=== PATIENT | female | born 1965 | race Caucasian/White ===

== ENCOUNTER 2016-08-25 22:02 | Emergency (ER) | payer OTHER ==
[2016-08-25] MEDS ORDERED: TRIPLE ANTIBIOTIC OINTMENT PAC 1 PACKET TOP ONE (22:30)
[2016-08-25] MEDS ORDERED: ACETAMINOPHEN 500 MG TABLET PO ONE (22:31)
--- NOTE | 2016-08-25 22:35 | ED Physician Documentation ---
Fall - HISTORIAN Historian: patient - HPI Stated Complaint: fell out of WC Chief Complaint: Fall Additional Information: Says she hit a pothole and fell onto left side of her face out of WC. C/O pain left ear, teeth, #7 and 10, lower ant legs, left side of body. Says she got herself back into WC. Onset: today (am hpur ago) Associated Symptoms:: no loss of consciousness - ROS CONST: no problems - PAST HX Past History: other (venous stasis lower legs; morbid obesity) Allergies/Adverse Reactions: Allergies Allergy/AdvReac Type Severity Reaction Status Date / Time morphine Allergy Severe Anaphylaxis Verified 08/25/16 22:23 phenytoin sodium Allergy Intermediate Rash Verified 08/25/16 22:23 [From Dilantin] phenytoin sodium extended Allergy Intermediate Rash Verified 08/25/16 22:23 [From Dilantin] Penicillins Allergy Mild Rash Verified 08/25/16 22:23 gabapentin Allergy Verified 08/25/16 22:23 phenobarbital AdvReac Face Verified 08/25/16 22:23 Swelling pregabalin [From Lyrica] AdvReac Rash Verified 08/25/16 22:23 tramadol AdvReac Anaphylaxis Verified 08/25/16 22:23 ADHESIVES AdvReac Unknown Rash Uncoded 08/25/16 22:23 Home Medications: Ambulatory Orders Medication Instructions Recorded Furosemide [Lasix] 80 mg PO BID 09/15/13 Eszopiclone [Lunesta] 3 mg PO D 01/16/14 Albuterol Sulfate [Ventolin HFA 1 puff PO PRN PRN 08/30/14 Inhaler] Fluticasone/Salmeterol [Advair 1 puff PO PRN PRN 08/30/14 500-50 Diskus] Quetiapine Fumarate [Seroquel] 200 mg PO PM 08/30/14 Tolterodine Tartrate [Detrol LA] 4 mg PO DAILY 08/30/14 Alprazolam [Xanax] 1 mg PO QID 09/25/14 Ropinirole HCl [Requip] 1 mg PO BID 12/05/14 Ferrous Gluconate [Iron] 236 mg PO DAILY #30 tablet 12/16/14 Naproxen [Naprosyn] 500 mg PO Q12H 10 Days 09/24/15 Phenazopyridine HCl [Pyridium] 200 mg PO TID #6 tablet 11/23/15 Hydroxyzine HCl 50 mg PO DAILY #30 tablet 04/04/16 Phenazopyridine HCl [Pyridium] 200 mg PO Q8H #6 tablet 04/04/16 - SOCIAL HX Smoking History: cigarettes - FAMILY HX Family History: other (migraines) - VITAL SIGNS Vital Signs: Vital Signs Temp Pulse Resp BP Pulse Ox 128/68 05/06/16 06:23 - REVIEWED ASSESSMENTS Nursing Assessment Reviewed: Yes Vitals Reviewed: Yes Progress - Progress Progress: Explained she would not receive narcotics because she hit her head. Wants them after x-rays. Does not live alone. Pt's weight exceeds CT scan limits here. C-spine films inadequate. 2315, accepted for [id number] to [facility] ER per Dr. Gonzales. I explained to patient that she would have tp find a ride home. ED Results Lab/Radiology - Orders Orders: ED Orders Category Date Time Status Apply occlusive dressing D Care 08/25/16 22:[address] BRAIN W/O CONTRAST Stat Exams 08/25/[address] C-SPINE W/O CONTRAST Stat Exams 08/25/16 Ordered Acetaminophen [Tylenol Extra Strength] Med 08/25/16 22:31 Once 1,000 mg PO NOW ONE Triple Antibiotic Ointment Pac [Neosporin Packet] Med 08/25/16 22:30 Once 1 packet TOP 1T ONE Fall Physical Exam - Physical Exam General Appearance: alert, mild distress Head: non-tender, no swelling, no obvious injury Neck: painless ROM, trachea midline Eye: RICARDO (conjugate movements), lids & conjunct. nml ENT: nml external inspection (bilateral upper canines with what appear to be old caries. Longer central incisors intact.) Resp/CVS: chest non-tender, breath sounds nml Abdomen: soft, normal bowel sounds Neuro: CN's nml as tested, sensation nml, motor nml, reflexes nml (2+ throughout ) Skin: color nml (except lower legs with erythema, brawny skin changes), other ( vianney lower ant legs with aged 5-6 x 2-4 cm raw/healing areas. no drainage. ) Extremities: pelvis stable Joint: nml ROM Discharge Clincal Impression: Fall from wheelchair, Venous stasis dermatitis of both lower extremities Home Medications: Ambulatory Orders Furosemide [Lasix] 80 mg PO BID 09/15/13 Eszopiclone [Lunesta] 3 mg PO D 01/16/14 Albuterol Sulfate [Ventolin HFA Inhaler] 1 puff PO PRN PRN 08/30/14 Fluticasone/Salmeterol [Advair 500-50 Diskus] 1 puff PO PRN PRN 08/30/14 Quetiapine Fumarate [Seroquel] 200 mg PO PM 08/30/14 Tolterodine Tartrate [Detrol LA] 4 mg PO DAILY 08/30/14 Alprazolam [Xanax] 1 mg PO QID 09/25/14 Ropinirole HCl [Requip] 1 mg PO BID 12/05/14 Ferrous Gluconate [Iron] 236 mg PO DAILY #30 tablet 12/16/14 Naproxen [Naprosyn] 500 mg PO Q12H 10 Days 09/24/15 Phenazopyridine HCl [Pyridium] 200 mg PO TID #6 tablet 11/23/15 Hydroxyzine HCl 50 mg PO DAILY #30 tablet 04/04/16 Phenazopyridine HCl [Pyridium] 200 mg PO Q8H #6 tablet 04/04/16 Condition: Fair Disposition: 02 XFER [id number]-[id number] HOSP Decision to Admit: NO Decision Time: 23:15
[2016-08-26 00:17] VITALS: BP 92/67
--- NOTE | 2016-08-26 07:34 | Diagnostic Imaging Report ---
EDU KOTHARI [facility] [address] [facility] [address] [place] [address]. [id number] Report Submission Date: Aug 25, 2016 11:29:28 PM DINING MANAGER Patient Study Name: ADITHYA HOOD Date: Aug 25, 2016 10:57:39 PM DINING MANAGER Modality Type: CR Gender: F Description: SPINE : 67 Institution: [facility] Physician: EDU KOTHARI Cervical spine - two views Clinical history: Fell out of wheelchair. Findings: Examination of the cervical spine in AP and lateral views is extremely limited on the lateral view with the vertebrae visualized down to the midbody of C2. There is no obvious fracture on the AP image. The C1-2 articulation is not well demonstrated because of superimposed mandible. Impression: 1. Severely limited examination without definite fracture. 2. Fracture cannot be excluded based on these images. Electronically signed on Aug 25, 2016 11:29:28 PM DINING MANAGER by: Eris HAILE
== END 2016-08-26 | disposition short-term general hospital (02) ==
LOC: ED 22:02
DX: S09.90XA Unspecified injury of head, initial encounter (principal); W19.XXXA Unspecified fall, initial encounter; Y93.9 Activity, unspecified; Y99.9 Unspecified external cause status; I87.2 Venous insufficiency (chronic) (peripheral)
CPT/HCPCS: 72040; 99284

== ENCOUNTER 2016-10-15 01:25 | Observation (INO) | payer OTHER ==
[2016-10-15] MEDS ORDERED: FLUMAZENIL 0.1 MG/ML 5ML VIAL IV ONE ×2 (01:57→02:43)
[2016-10-15] MEDS ORDERED: NALOXONE HCL 2 MG/2 ML IVP ONE (01:58)
[2016-10-15] MEDS ORDERED: 0.9 % SODIUM CHLORIDE 1,000 ML IV SCH (02:00)
[2016-10-15 02:01] LABS: BASOPHILS % 0.4 (0.0-1.5); EOSINOPHILS % 1.6 % (0.0-6.8); MEAN CORPUSCULAR HEMOGLOBIN 29.4 pg (28.0-34.0); MEAN CORPUSCULAR VOLUME 95.5 fl (80.0-100.0); MONOCYTES % 3.9 % (0.0-11.0); NEUTROPHILS # 6.4 # k/uL (1.4-7.7)
[2016-10-15 02:10] LABS: eGFR (African) > 60; eGFR (Non-African) > 60
[2016-10-15] MEDS: BUDESONIDE 0.5MG/2ML AMPUL.NEB NEB SCH ×2 (03:38→09:55)
[2016-10-15] MEDS ORDERED: diphenhydrAMINE HCL 50 MG/ML VIAL IVP PRN (03:49)
[2016-10-15 04:04] VITALS: BMI 45.1
[2016-10-15] MEDS: 0.9 % SODIUM CHLORIDE 1,000 ML IV SCH ×2 (04:04→05:41)
[2016-10-15] MEDS ORDERED: LEVOTHYROXINE SODIUM 100 MCG TABLET PO ONE (04:16)
[2016-10-15 05:22] LABS: APPEARANCE,URINE CLOUDY (CLEAR); COLOR,URINE AMBER (YELLOW); OCCULT BLOOD,URINE TRACE-INTACT (NEGATIVE); PH URINE 5.5 (5.0 - 8.0); UROBILINOGEN URINE 0.2 Eu (0.2-1.0)
[2016-10-15 05:22] LABS: AMPHETAMINE NEGATIVE ng/mL (<1000); BARBITURATES NEGATIVE ng/mL (<300); CANNABINOIDS NEGATIVE ng/mL (<50); COCAINE NEGATIVE ng/mL (<150); METHAMPHETAMINE NEGATIVE ng/mL (<1000); METHYLENEDIOXYMETHAMPHETAMINE NEGATIVE ng/mL (<500)
[2016-10-15] MEDS: IPRATROPIUM/ALBUTEROL SULFATE 3 ML AMPUL.NEB NEB SCH ×3 (06:48→13:27)
[2016-10-15] MEDS ORDERED: LEVOTHYROXINE SODIUM 25 MCG TABLET PO SCH (07:00)
--- NOTE | 2016-10-15 07:29 | Diagnostic Imaging Report ---
LICHA CORADO [facility] [address] [facility] [address] [place], [place]. [address] Report Submission Date: Oct 15, 2016 2:23:00 AM CDT Patient Study Name: ADITHYA HOOD Date: Oct 15, 2016 2:02:32 AM CDT Modality Type: CR Gender: F Description: CHEST : 67 Institution: [facility] Physician: LICHA CORADO Portable chest History: Overdose Findings: Low lung volumes are observed with mild atelectasis or bronchovascular crowding at the lung bases. There is no confluent infiltrate or pleural effusion. Heart size and pulmonary vascularity are normal. Impression: Low lung volumes. Electronically signed on Oct 15, 2016 2:23:00 AM CDT by: Kirby HAILE
--- NOTE | 2016-10-15 08:21 | ED Physician Documentation ---
Overdose - HISTORIAN Historian: patient, paramedics - HPI Stated Complaint: Respiratory depression/decreased mental status/poss. OD on home meds Chief Complaint: Overdose Additional Information: Pt. states took 4 mg Dilaudid with all her other meds which, she states, is apparently too much. Found by paramedics to be unresponsive in obvious overdose. Given intranasal Narcan with good response. Onset: other (unknown, pt. states she took her normal meds before bed) Duration: sudden onset Intent: accidental Severity: severe Situational Problems: No Further Comments: no - Associated Symptoms Symptoms: other (accidentaql) Suicidal: denies: suicidal thoughts, specific plan, gesture, attempt Ingestion: denies: suicide attempt, wanted to "escape", accidental, will not answer Mechanism: overdose - ROS CONST: none NEURO/PSYCH: none EYES/ENT: none CVS/RESP: none GI/: denies: nausea, vomiting, abdominal pain, problems urinating MS/SKIN/LYMPH: denies: joint pain, leg swelling, rash, swollen glands, ankle swelling - PAST HX Psychiatric problems: bipolar disorder, depression Lung, Cardiac, DM: cardiac disease, diabetes Type 2, hypertension, other ( hypothyroidism) Surgical History: cholecystectomy Immunizations: referred to PCP Allergies/Adverse Reactions: Allergies Allergy/AdvReac Type Severity Reaction Status Date / Time morphine Allergy Severe Anaphylaxis Verified 08/25/16 22:23 phenytoin sodium Allergy Intermediate Rash Verified 08/25/16 22:23 [From Dilantin] phenytoin sodium extended Allergy Intermediate Rash Verified 08/25/16 22:23 [From Dilantin] Penicillins Allergy Mild Rash Verified 08/25/16 22:23 gabapentin Allergy Verified 08/25/16 22:23 phenobarbital AdvReac Face Verified 08/25/16 22:23 Swelling pregabalin [From Lyrica] AdvReac Rash Verified 08/25/16 22:23 tramadol AdvReac Anaphylaxis Verified 08/25/16 22:23 ADHESIVES AdvReac Unknown Rash Uncoded 08/25/16 22:23 Home Medications: Ambulatory Orders Medication Instructions Recorded Furosemide [Lasix] 80 mg PO BID 09/15/13 Eszopiclone [Lunesta] 3 mg PO D 01/16/14 Albuterol Sulfate [Ventolin HFA 1 puff PO PRN PRN 08/30/14 Inhaler] Fluticasone/Salmeterol [Advair 1 puff PO PRN PRN 08/30/14 500-50 Diskus] Quetiapine Fumarate [Seroquel] 200 mg PO PM 08/30/14 Tolterodine Tartrate [Detrol LA] 4 mg PO DAILY 08/30/14 Alprazolam [Xanax] 1 mg PO QID 09/25/14 Ropinirole HCl [Requip] 1 mg PO BID 12/05/14 Ferrous Gluconate [Iron] 236 mg PO DAILY #30 tablet 12/16/14 Naproxen [Naprosyn] 500 mg PO Q12H 10 Days 09/24/15 Phenazopyridine HCl [Pyridium] 200 mg PO TID #6 tablet 11/23/15 Hydroxyzine HCl 50 mg PO DAILY #30 tablet 04/04/16 Phenazopyridine HCl [Pyridium] 200 mg PO Q8H #6 tablet 04/04/16 - Social HX Smoking History: cigarettes Marital Status: other (n/a) Drug Use: none - Family HX Family HX: mental illness - VITAL SIGNS Vital Signs: Vital Signs Temp Pulse Resp BP Pulse Ox 98.8 F 92 H 20 132/74 94 10/15/16 06:00 10/15/16 06:00 10/15/16 06:00 10/15/16 06:00 10/15/16 07:49 - REVIEWED ASSESSMENTS Nursing Assessment Reviewed: Yes Vitals Reviewed: Yes Progress - Results/Orders Results/Orders: cbc, cmp, ua, uds, bnp, ekg, cxr ordered - Progress Progress: Pt. given Romazicon with complete resolution of altered mental status, now completely alert Critical Care Note - Critical Care Note Total Time (mins): 0 ED Results Lab/Radiology - Lab Results Lab Results: Lab Results 10/15/16 10/15/16 10/15/16 02:50 02:45 01:50 WBC RBC Hgb Hct MCV MCH MCHC RDW Plt Count Neut % (Auto) Lymph % (Auto) [place] % (Auto) Eos % (Auto) Baso % (Auto) Neut # Lymph # [place] # Eos # Baso # Reactive Lymphs % Reactive Lymphs # Sodium Potassium Chloride Carbon Dioxide BUN Creatinine Est GFR ( Amer) Est GFR (Non-Af Amer) Glucose Calcium Total Bilirubin AST ALT Alkaline Phosphatase NT-Pro-B Natriuret Pep 371.3 pg/mL H pg/mL (15.0-125.0) Total Protein Albumin Urine Color [place] (YELLOW) Urine Appearance Cloudy H (CLEAR) Urine pH 5.5 (5.0 - 8.0) Ur Specific [place] 1.025 (1.010-1.030) Urine Protein 2+ mg/dL H mg/dL (NEGATIVE) Urine Ketones Trace mg/dL H mg/dL (NEGATIVE) Urine Occult Blood Trace-intact H (NEGATIVE) Urine Nitrite Positive H (NEGATIVE) Urine Bilirubin Negative (NEGATIVE) Urine Urobilinogen 0.2 Eu Eu (0.2-1.0) Ur Leukocyte Esterase 1+ H (NEGATIVE) Urine Glucose Negative mg/dL mg/dL (NEGATIVE) Opiates Screen Negative (2000 ng/mL) Oxycodone Screen Negative ng/mL ng/mL (<100) Methadone Screen Negative ng/mL ng/mL (<300) POC Urine Barbiturates Negative ng/mL ng/mL (<300) Amphetamines Screen Negative ng/mL ng/mL (<1000) POC Ur Methamphetamine Negative ng/mL ng/mL (<1000) MDMA Negative ng/mL ng/mL (<500) Benzodiazepines Screen Non negative ng/mL H ng/mL (<300) Cocaine Screen Negative ng/mL ng/mL (<150) Marijuana (THC) Screen Negative ng/mL ng/mL (<50) 10/15/16 10/15/16 01:50 01:50 WBC 8.58 K/ul K/ul (4.00-12.00) RBC 5.29 M/ul H M/ul (3.90-5.20) Hgb 15.5 g/dL g/dL (12.0-16.0) Hct 50.5 % H % (34.5-46.5) MCV 95.5 fl fl (80.0-100.0) MCH 29.4 pg pg (28.0-34.0) MCHC 30.7 g/dL g/dL (30.0-36.0) RDW 15.0 % H % (11.3-14.3) Plt Count 280 K/mm3 K/mm3 (130-400) Neut % (Auto) 72.9 % % (39.0-79.0) Lymph % (Auto) 19.5 % % (16.0-50.0) [place] % (Auto) 3.9 % % (0.0-11.0) Eos % (Auto) 1.6 % % (0.0-6.8) Baso % (Auto) 0.4 (0.0-1.5) Neut # 6.4 # k/uL # k/uL (1.4-7.7) Lymph # 1.7 # k/uL # k/uL (0.6-4.0) [place] # 0.3 # k/uL # k/uL (0.0-0.9) Eos # 0.1 # k/uL # k/uL (0.0-0.6) Baso # 0.0 # k/uL # k/uL (0.0-0.5) Reactive Lymphs % 1.7 % % (0.0-5.0) Reactive Lymphs # 0.2 # k/uL # k/uL (0.0-0.8) Sodium 144 mmol/L mmol/L (136-145) Potassium 3.7 mmol/L mmol/L (3.5-5.0) Chloride 106 mmol/L mmol/L (98-110) Carbon Dioxide 37 mmol/L H mmol/L (20-32) BUN 12 mg/dL mg/dL (10-26) Creatinine 1.0 mg/dL mg/dL (0.4-1.5) Est GFR ( Amer) > 60 (60 - ) Est GFR (Non-Af Amer) > 60 (60 - ) Glucose 112 mg/dL H mg/dL (70-99) Calcium 10.2 mg/dL mg/dL (8.5-10.5) Total Bilirubin 0.2 mg/dL mg/dL (0.2-1.2) AST 44 U/L H U/L (0-41) ALT 47 U/L H U/L (0-45) Alkaline Phosphatase 85 U/L U/L (46-116) NT-Pro-B Natriuret Pep Total Protein 9.0 g/dL H g/dL (6.0-8.5) Albumin 4.7 g/dL g/dL (3.0-5.5) Urine Color Urine Appearance Urine pH Ur Specific [place] Urine Protein Urine Ketones Urine Occult Blood Urine Nitrite Urine Bilirubin Urine Urobilinogen Ur Leukocyte Esterase Urine Glucose Opiates Screen Oxycodone Screen Methadone Screen POC Urine Barbiturates Amphetamines Screen POC Ur Methamphetamine MDMA Benzodiazepines Screen Cocaine Screen Marijuana (THC) Screen - Radiology Radiology Impressions: cxr neg - Orders Orders: ED Orders Category Date Time Status Activity as ordered D Care 10/15/16 03:49 Active Assess pulse oximetry Q4H Care 10/15/16 03:49 Active Continuous EKG monitoring Q2 Care 10/15/16 03:49 Active Document Bowel Movement Q8H Care 10/15/16 03:49 Active ED Provider NOW Care 10/15/16 03:49 Ordered Monitor for changes in mental Q2H Care 10/15/16 03:49 Active No VTE Prophylaxis Needed .Once Care 10/15/16 03:49 Active Observation-Telemetry NOW Care 10/15/16 03:49 Ordered Obtain weight DAILY@0500 Care 10/15/16 03:49 Active Saline Lock [Remove IV/Saline Lock] 1T Care 10/15/16 01:52 Active Vital Signs Q4 Care 10/15/16 03:49 Active Regular Diet 10/15/16 Breakfast Ordered Regular Diet 10/15/16 Breakfast Ordered CHEST 1 VIEW [RAD] Routine Exams 10/15/16 Completed BNP [NT-proBNP] Routine Lab 10/15/16 01:50 Completed CBC AUTO DIFF Routine Lab 10/15/16 01:50 Completed CMP Routine Lab 10/15/16 01:50 Completed DRUG SCREEN URINE MEDICAL ONLY Routine Lab 10/15/16 02:50 Completed 0.9 % Sodium Chloride [Normal Saline] 1,000 ml Med 10/15/16 02:00 Ordered IV .Q1H 0.9 % Sodium Chloride [Normal Saline] 1,000 ml Med 10/15/16 03:49 Ordered IV Q10H Budesonide [Pulmicort] Med 10/15/16 03:00 Ordered 0.5 mg NEB BID Budesonide [Pulmicort] Med 10/15/16 09:00 Ordered 0.5 mg NEB BID Chem Sticks Med 10/15/16 07:30 Ordered 1 each CHEMQID Ferrous Sulfate [Feosol] Med 10/15/16 11:00 Ordered 325 mg PO 1100 Flumazenil [Romazicon] Med 10/15/16 02:43 Discontinued 0.5 mg IV NOW ONE Flumazenil [Romazicon] Med 10/15/16 01:57 Discontinued 1 mg IV NOW ONE Fluticasone Propionate [Flonase Nasal Guston] Med 10/15/16 09:00 Ordered 1 spray NS BID Furosemide [Lasix] Med 10/15/16 09:00 Ordered 40 mg IVP Q12 Ipratropium/Albuterol Sulfate [Duoneb] Med 10/15/16 05:00 Ordered 3 ml NEB Q4 Levofloxacin 250Mg/D5w 50Ml [Levaquin] 250 mg Med 10/15/16 09:00 Discontinued Premix Bag [Premix Fluid] 1 bag IV DAILY Levothyroxine Sodium [Synthroid] Med 10/15/16 07:00 Ordered 50 mcg PO 0700 Naloxone HCl [Narcan] Med 10/15/16 01:58 Discontinued 1 mg IVP NOW ONE Naproxen [Naprosyn] Med 10/15/16 09:00 Ordered 500 mg PO BID Phenazopyridine HCl [Pyridium] Med 10/15/16 09:00 Ordered 200 mg PO TID QUEtiapine FUMARATE [Seroquel] Med 10/15/16 09:00 Ordered 50 mg PO DAILY diphenhydrAMINE HCL [Benadryl] Med 10/15/16 03:49 Ordered 50 mg IVP Q6 PRN rOPINIRole HCL [Requip] Med 10/15/16 09:00 Ordered 1 mg PO BID Resuscitation Status Routine Oth 10/15/16 03:49 Ordered Oxygen Daily Oxygen 10/15/16 02:00 Ordered Oxygen Daily Oxygen 10/15/16 03:49 Ordered Transfer Routine Transfer 10/15/16 Completed Overdose Physical Exam - Physical Exam General Appearance: lethargic ENT: nml ENT inspection, pharynx nml, nml gag reflex, head atraumatic Eyes: PERRL, EOM's intact Mental Status: hostile. No: suicidal ideation Suicide Attempts: denies Orientation: nml x3 Cranial Nerves: CN's intact as tested Sensory, Motor: nml motor response, nml sensory response, nml reflexes Neck: normal inspection, thyroid normal, supple Respiratory: no resp distress, chest non-tender, breath sounds normal CVS: reg rate & rhythm, heart sounds normal, equal pulses, no murmur, no gallop , PMI nml, no JVD, no friction rub Abdomen: non-tender, no organomegaly, nml bowel sounds, no distention Skin: warm/dry, normal color Extremities: non-tender, normal range of motion, no evidence of injury, no edema Discharge Clincal Impression: Accidental overdose Qualifiers: Encounter type: initial encounter Qualified Code(s): T50.901A - Poisoning by unspecified drugs, medicaments and biological substances, accidental ( unintentional), initial encounter Home Medications: Ambulatory Orders Furosemide [Lasix] 80 mg PO BID 09/15/13 Eszopiclone [Lunesta] 3 mg PO D 01/16/14 Albuterol Sulfate [Ventolin HFA Inhaler] 1 puff PO PRN PRN 08/30/14 Fluticasone/Salmeterol [Advair 500-50 Diskus] 1 puff PO PRN PRN 08/30/14 Quetiapine Fumarate [Seroquel] 200 mg PO PM 08/30/14 Tolterodine Tartrate [Detrol LA] 4 mg PO DAILY 08/30/14 Alprazolam [Xanax] 1 mg PO QID 09/25/14 Ropinirole HCl [Requip] 1 mg PO BID 12/05/14 Ferrous Gluconate [Iron] 236 mg PO DAILY #30 tablet 12/16/14 Naproxen [Naprosyn] 500 mg PO Q12H 10 Days 09/24/15 Phenazopyridine HCl [Pyridium] 200 mg PO TID #6 tablet 11/23/15 Hydroxyzine HCl 50 mg PO DAILY #30 tablet 04/04/16 Phenazopyridine HCl [Pyridium] 200 mg PO Q8H #6 tablet 04/04/16 Comments: admitted to ER physician obs status, accidental overdose Condition: Stable Disposition: ADMITTED INPATIENT Decision to Admit: [id number] Decision Time: 04:15
[2016-10-15] MEDS ORDERED: FUROSEMIDE 40 MG TABLET PO ONE ×2 (08:58→09:19)
[2016-10-15] MEDS ORDERED: BUDESONIDE 0.5MG/2ML AMPUL.NEB NEB SCH (09:00)
[2016-10-15] MEDS ORDERED: rOPINIRole HCL 1 MG TABLET PO SCH (09:00)
[2016-10-15] MEDS ORDERED: FLUTICASONE PROPIONATE 120 SPRAY/16 GR BOTTLE NS SCH (09:00)
[2016-10-15] MEDS ORDERED: LEVOFLOXACIN 500 MG TABLET PO SCH (09:00)
[2016-10-15] MEDS ORDERED: NAPROXEN 250 MG TABLET PO SCH (09:00)
[2016-10-15] MEDS ORDERED: FUROSEMIDE 40 MG/4 ML VIAL IVP SCH (09:00)
[2016-10-15] MEDS ORDERED: LEVOFLOXACIN 250MG/D5W 50ML 250 MG in PREMIX BAG 1 BAG IV SCH (09:00)
[2016-10-15] MEDS ORDERED: FUROSEMIDE 40 MG TABLET PO SCH (09:00)
[2016-10-15] MEDS ORDERED: BUDESONIDE 0.5MG/2ML AMPUL.NEB NEB ONE (09:06)
[2016-10-15] MEDS: QUEtiapine FUMARATE 25 MG TABLET PO SCH (09:26)
[2016-10-15] MEDS ORDERED: diphenhydrAMINE HCL 25 MG TABLET PO PRN (09:35)
--- NOTE | 2016-10-15 12:26 | Discharge Summary ---
Discharge Summary - Discharge Sumary History of Present Illness: Pt. presented to ER with acute overdose, unintentional. Stablized in er, monitored in hosp. discharged in stable condition with medication modifications recommended to avoid recurrence of accidental od. Condition at Discharge: Stable Home Medications: Ambulatory Orders Medication Instructions Recorded Furosemide [Lasix] 80 mg PO BID 09/15/13 Albuterol Sulfate [Ventolin HFA 1 puff PO PRN PRN 08/30/14 Inhaler] Fluticasone/Salmeterol [Advair 1 puff PO PRN PRN 08/30/14 500-50 Diskus] Quetiapine Fumarate [Seroquel] 200 mg PO PM 08/30/14 Tolterodine Tartrate [Detrol LA] 4 mg PO DAILY 08/30/14 Ropinirole HCl [Requip] 1 mg PO BID 12/05/14 Ferrous Gluconate [Iron] 236 mg PO DAILY #30 tablet 12/16/14 Naproxen [Naprosyn] 500 mg PO Q12H 10 Days 09/24/15 Phenazopyridine HCl [Pyridium] 200 mg PO TID #6 tablet 11/23/15 Hydroxyzine HCl 50 mg PO DAILY #30 tablet 04/04/16 Phenazopyridine HCl [Pyridium] 200 mg PO Q8H #6 tablet 04/04/16 Levofloxacin [Levaquin] 500 mg PO DAILY #7 tablet 10/15/16 Consultations this Visit: None Procedures this Visit: None Allergies/Adverse Reactions: Allergies Allergy/AdvReac Type Severity Reaction Status Date / Time morphine Allergy Severe Anaphylaxis Verified 08/25/16 22:23 phenytoin sodium Allergy Intermediate Rash Verified 08/25/16 22:23 [From Dilantin] phenytoin sodium extended Allergy Intermediate Rash Verified 08/25/16 22:23 [From Dilantin] Penicillins Allergy Mild Rash Verified 08/25/16 22:23 gabapentin Allergy Verified 08/25/16 22:23 phenobarbital AdvReac Face Verified 08/25/16 22:23 Swelling pregabalin [From Lyrica] AdvReac Rash Verified 08/25/16 22:23 tramadol AdvReac Anaphylaxis Verified 08/25/16 22:23 ADHESIVES AdvReac Unknown Rash Uncoded 08/25/16 22:23 Patient Problems: Current Active Problems Problem Status Onset Accidental overdose Acute Discharge Summary: Pt. stable entire time in hosp. Hospital Course: Pt's hospital course unremarkable
[2016-10-15] MEDS: FERROUS SULFATE 325 MG TABLET PO SCH ×2 (12:29→12:30)
[2016-10-15 12:52] VITALS: BP 146/79
[2016-10-15] MEDS: PHENAZOPYRIDINE HCL 200 MG TABLET PO SCH ×2 (13:28→13:29)
== END 2016-10-15 14:30 | disposition home or self-care (01) ==
LOC: ED 01:25 → SOUTH 03:13
PROVIDERS: ADMIT Emergency Medicine; ATTEND Emergency Medicine
DX: T50.901A Poisoning by unspecified drugs, medicaments and biological substances, accidental (unintentional), initial encounter (principal); X58.XXXA Exposure to other specified factors, initial encounter; Y93.9 Activity, unspecified; Y99.9 Unspecified external cause status
CPT/HCPCS: 71010; 80053; 80377; 81002; 83880; 85025; 87086; 87186; 96365; 96375; 96376; 99284; G0378; J7030; J7626; G0481; S1016

== ENCOUNTER 2016-11-18 09:53 | Emergency (ER) | payer OTHER ==
[2016-11-18 10:22] LABS: APPEARANCE,URINE Cloudy (CLEAR); COLOR,URINE Yellow (YELLOW); OCCULT BLOOD,URINE 1+ (NEGATIVE); UROBILINOGEN URINE 0.2 Eu (0.2-1.0)
[2016-11-18 10:31] LABS: AMORPHOUS SEDIMENT,UR FEW (NEGATIVE); YEAST,URINE FEW (NEGATIVE)
[2016-11-18] MEDS: PHENAZOPYRIDINE HCL 200 MG TABLET PO ONE (11:36)
[2016-11-18] MEDS: NITROFURANTOIN 100 MG CAPSULE PO ONE (11:36)
[2016-11-18 12:38] VITALS: BP 119/81
--- NOTE | 2016-11-19 05:35 | ED Physician Documentation ---
Abdominal Pain - HISTORIAN Historian: patient - HPI Stated Complaint: blood in urine Chief Complaint: Abdominal Pain Additonal Information: lower abd. pain, burning, blood in urine, catheter pt. Onset: days ago (1) Duration: constant, sudden-onset Timing: still present Context: denies: out of country travel, bad food, recent trauma Severity: moderate Quality: burning Front/Back of Body, Lg (Color): 1 - pain Associated Symptoms: none Exacerbated by: nothing Relieved by: nothing Further Comments: no - ROS CONST: no problems GI/: bloody urine CVS/RESP: none EYES/ENT: none MS/SKIN/LYMPH: none NEURO/PSYCH: none - SOCIAL HX Smoking History: non-smoker Alcohol Use: none Drug Use: none - FAMILY HX Family History: no significant history - PAST HX Past History: other (chronic catheter) Ischemic Bowel Risk Factors: none Other History: other (see nurses notes) Surgeries/Procedures: other (see nurses notes) Immunizations: other Home Medications: Ambulatory Orders Medication Instructions Recorded Furosemide [Lasix] 80 mg PO BID 09/15/13 Albuterol Sulfate [Ventolin HFA 1 puff PO PRN PRN 08/30/14 Inhaler] Fluticasone/Salmeterol [Advair 1 puff PO PRN PRN 08/30/14 500-50 Diskus] Quetiapine Fumarate [Seroquel] 200 mg PO PM 08/30/14 Tolterodine Tartrate [Detrol LA] 4 mg PO DAILY 08/30/14 Ropinirole HCl [Requip] 1 mg PO BID 12/05/14 Ferrous Gluconate [Iron] 236 mg PO DAILY #30 tablet 12/16/14 Naproxen [Naprosyn] 500 mg PO Q12H 10 Days 09/24/15 Phenazopyridine HCl [Pyridium] 200 mg PO TID #6 tablet 11/23/15 Hydroxyzine HCl 50 mg PO DAILY #30 tablet 04/04/16 Phenazopyridine HCl [Pyridium] 200 mg PO Q8H #6 tablet 04/04/16 Levofloxacin [Levaquin] 500 mg PO DAILY #7 tablet 10/15/16 Nitrofurantoin Monohyd/M-Cryst 100 mg PO BID #20 capsule 11/18/16 [Macrobid] Phenazopyridine HCl [Pyridium] 200 mg PO TID #14 tablet 11/18/16 Allergies/Adverse Reactions: Allergies Allergy/AdvReac Type Severity Reaction Status Date / Time morphine Allergy Severe Anaphylaxis Verified 08/25/16 22:23 phenytoin sodium Allergy Intermediate Rash Verified 08/25/16 22:23 [From Dilantin] phenytoin sodium extended Allergy Intermediate Rash Verified 08/25/16 22:23 [From Dilantin] Penicillins Allergy Mild Rash Verified 08/25/16 22:23 gabapentin Allergy Verified 08/25/16 22:23 phenobarbital AdvReac Face Verified 08/25/16 22:23 Swelling pregabalin [From Lyrica] AdvReac Rash Verified 08/25/16 22:23 tramadol AdvReac Anaphylaxis Verified 08/25/16 22:23 ADHESIVES AdvReac Unknown Rash Uncoded 08/25/16 22:23 - VITAL SIGNS Vital Signs: Vital Signs Temp Pulse Resp BP Pulse Ox 98.6 F 88 18 119/81 94 11/18/16 10:00 11/18/16 12:34 11/18/16 12:34 11/18/16 12:34 11/18/16 12:34 - REVIEWED ASSESSMENTS Nursing Assessment Reviewed: Yes Vitals Reviewed: Yes Progress - Results/Orders Results/Orders: ua ordered - Progress Progress: pt. goven macrobid and pyridium p.o. in er Critical Care Note - Critical Care Note Total Time (mins): 0 ED Results Lab/Radiology - Lab Results Lab Results: Lab Results 11/18/16 10:20 Urine Color Yellow (YELLOW) Urine Appearance Cloudy (CLEAR) Urine pH 5.0 (5.0 - 8.0) Ur Specific [place] 1.015 (1.010-1.030) Urine Protein Negative mg/dL mg/dL (NEGATIVE) Urine Ketones Negative mg/dL mg/dL (NEGATIVE) Urine Occult Blood 1+ H (NEGATIVE) Urine Nitrite Positive (NEGATIVE) Urine Bilirubin Negative (NEGATIVE) Urine Urobilinogen 0.2 Eu Eu (0.2-1.0) Ur Leukocyte Esterase 1+ H (NEGATIVE) Urine RBC 10-25 H (0-2 HPF) Urine WBC 10-25 H (0-5 HPF) Ur Squamous Epith Cells Moderate H (NEG-FEW) Calcium Oxalate Crystal Few H (NEGATIVE) Amorphous Sediment Few H (NEGATIVE) Urine Bacteria Many H (NEGATIVE) Urine Yeast Few H (NEGATIVE) Urine Glucose Negative mg/dL mg/dL (NEGATIVE) - Radiology Radiology Impressions: none ordered - Orders Orders: ED Orders Category Date Time Status URINALYSIS Routine Lab 11/18/16 10:20 Completed URINE CULTURE Routine Lab 11/18/16 10:20 Received Nitrofurantoin Monohyd/M-Cryst [Macrobid] Med 11/18/16 11:04 Discontinued 100 mg PO NOW ONE Phenazopyridine HCl [Pyridium] Med 11/18/16 11:04 Discontinued 200 mg PO NOW ONE Abdominal Pain Physical Exam - Physical Exam General Appearance: alert, other (somnolent) EENT: eye inspection normal, ENT inspection normal, pharynx normal, no signs of dehydration, RICARDO, no nystagmus, TM's nml NECK: normal inspection, thyroid normal, supple RESPIRATORY: no resp distress, chest non-tender, breath sounds normal CVS: reg rate & rhythm, heart sounds normal, equal pulses, no murmur ABDOMEN: soft, no organomegaly, normal bowel sounds, tenderness (suprapubic area ) BACK: normal inspection, no CVA tenderness SKIN: warm/dry, normal color EXTREMITIES: non-tender, normal range of motion, no evidence of injury NEURO: oriented X3, CN's nml as tested, motor nml, sensation nml, mood/affect nml Vital Signs: Vital Signs Temp Pulse Resp BP Pulse Ox 98.6 F 88 18 119/81 94 11/18/16 10:00 11/18/16 12:34 11/18/16 12:34 11/18/16 12:34 11/18/16 12:34 Discharge Clincal Impression: Urinary tract infection Qualifiers: Urinary tract infection type: acute cystitis Hematuria presence: with hematuria Qualified Code(s): N30.01 - Acute cystitis with hematuria Prescriptions: Nitrofurantoin Monohyd/M-Cryst [Macrobid] 100 mg PO BID #20 capsule Phenazopyridine HCl [Pyridium] 200 mg PO TID #14 tablet Referrals: Primary Doctor,No [Primary Care Provider] - 2 Days Home Medications: Ambulatory Orders Furosemide [Lasix] 80 mg PO BID 09/15/13 Albuterol Sulfate [Ventolin HFA Inhaler] 1 puff PO PRN PRN 08/30/14 Fluticasone/Salmeterol [Advair 500-50 Diskus] 1 puff PO PRN PRN 08/30/14 Quetiapine Fumarate [Seroquel] 200 mg PO PM 08/30/14 Tolterodine Tartrate [Detrol LA] 4 mg PO DAILY 08/30/14 Ropinirole HCl [Requip] 1 mg PO BID 12/05/14 Ferrous Gluconate [Iron] 236 mg PO DAILY #30 tablet 12/16/14 Naproxen [Naprosyn] 500 mg PO Q12H 10 Days 09/24/15 Phenazopyridine HCl [Pyridium] 200 mg PO TID #6 tablet 11/23/15 Hydroxyzine HCl 50 mg PO DAILY #30 tablet 04/04/16 Phenazopyridine HCl [Pyridium] 200 mg PO Q8H #6 tablet 04/04/16 Levofloxacin [Levaquin] 500 mg PO DAILY #7 tablet 10/15/16 Nitrofurantoin Monohyd/M-Cryst [Macrobid] 100 mg PO BID #20 capsule 11/18/16 Phenazopyridine HCl [Pyridium] 200 mg PO TID #14 tablet 11/18/16 Comments: pt. discharged with scripts for pyridium and macrobid Condition: Stable Disposition: 01 HOME, SELF-CARE Decision to Admit: NO Decision Time: 12:30
== END 2016-11-18 12:39 | disposition home or self-care (01) ==
LOC: ED 09:53
DX: N30.01 Acute cystitis with hematuria (principal)
CPT/HCPCS: 81002; 87086; 87186; 99283

== ENCOUNTER 2016-12-25 22:38 | Emergency (ER) | payer OTHER ==
[2016-12-25] MEDS ORDERED: KETOROLAC TROMETHAMINE 30 MG/1ML VIAL IVP ONE (23:17)
[2016-12-25] MEDS ORDERED: 0.9 % SODIUM CHLORIDE 1,000 ML IV SCH (23:30)
[2016-12-25 23:42] LABS: eGFR (African) > 60; eGFR (Non-African) > 60
[2016-12-25] MEDS ORDERED: 0.9 % SODIUM CHLORIDE 1,000 ML IV ONE (23:44)
[2016-12-25 23:53] LABS: BASOPHILS % 0.5 (0.0-1.5); EOSINOPHILS % 1.7 % (0.0-6.8); MEAN CORPUSCULAR HEMOGLOBIN 28.9 pg (28.0-34.0); MEAN CORPUSCULAR VOLUME 89.2 fl (80.0-100.0); MONOCYTES % 3.3 % (0.0-11.0)
[2016-12-26] MEDS ORDERED: PHENAZOPYRIDINE HCL 200 MG TABLET PO ONE (00:06)
[2016-12-26] MEDS ORDERED: fentaNYL CITRATE/PF 100 MCG/ 2ML AMP IVP ONE (00:29)
[2016-12-26 01:07] VITALS: BP 108/68
--- NOTE | 2016-12-26 03:20 | ED Physician Documentation ---
General Adult - HISTORIAN Historian: patient - HPI Chief Complaint: General Adult Timing: still present Further Comments: yes (Patient states that she ahs been having pain with catheter. States that her cath is in because of MS and neurogenic bladder. Has recetnly finished course of bactrim nd something for spasms. Has been having a fever up to 102. Feels like something is dropping out of her bladder. Has beenhaving some diarrhea for 3 weeks. No blood in the stool.) - ROS CONST: fever. denies: chills - PAST HX Past History: hypertension, other (MS, migrain headaches, Bipolar tpe 2, CAD, hypothyroidism) Other History: diabetes Type 2 Surgeries/Procedures: cholecystectomy Allergies/Adverse Reactions: Allergies Allergy/AdvReac Type Severity Reaction Status Date / Time morphine Allergy Severe Anaphylaxis Verified 12/25/16 23:32 phenytoin sodium Allergy Intermediate Rash Verified 12/25/16 23:32 [From Dilantin] phenytoin sodium extended Allergy Intermediate Rash Verified 12/25/16 23:32 [From Dilantin] Penicillins Allergy Mild Rash Verified 12/25/16 23:32 gabapentin Allergy Verified 12/25/16 23:32 phenobarbital AdvReac Face Verified 12/25/16 23:32 Swelling pregabalin [From Lyrica] AdvReac Rash Verified 12/25/16 23:32 tramadol AdvReac Anaphylaxis Verified 12/25/16 23:32 ADHESIVES AdvReac Unknown Rash Uncoded 08/25/16 22:23 Home Medications: Ambulatory Orders Medication Instructions Recorded Furosemide [Lasix] 80 mg PO BID 09/15/13 Albuterol Sulfate [Ventolin HFA 1 puff PO PRN PRN 08/30/14 Inhaler] Fluticasone/Salmeterol [Advair 1 puff PO PRN PRN 08/30/14 500-50 Diskus] Quetiapine Fumarate [Seroquel] 200 mg PO PM 08/30/14 Tolterodine Tartrate [Detrol LA] 4 mg PO DAILY 08/30/14 Ropinirole HCl [Requip] 1 mg PO BID 12/05/14 Ferrous Gluconate [Iron] 236 mg PO DAILY #30 tablet 12/16/14 Naproxen [Naprosyn] 500 mg PO Q12H 10 Days 09/24/15 Phenazopyridine HCl [Pyridium] 200 mg PO TID #6 tablet 11/23/15 Phenazopyridine HCl [Pyridium] 200 mg PO Q8H #6 tablet 04/04/16 Nitrofurantoin Monohyd/M-Cryst 100 mg PO BID #20 capsule 11/18/16 [Macrobid] Phenazopyridine HCl [Pyridium] 200 mg PO TID #14 tablet 11/18/16 Phenazopyridine HCl [Pyridium] 100 mg PO TID #21 tablet 12/26/16 - SOCIAL HX Smoking History: greater than 1 pack/day, other Alcohol Use: none Drug Use: none - FAMILY HX Family History: Yes - VITAL SIGNS Vital Signs: Vital Signs Temp Pulse Resp BP Pulse Ox 119/81 11/18/16 12:34 - REVIEWED ASSESSMENTS Nursing Assessment Reviewed: Yes Vitals Reviewed: Yes General Adult Physical Exam - PHYSICAL EXAM GENERAL APPEARANCE: moderate distress EENT: eye inspection normal, ENT inspection normal NECK: normal inspection RESPIRATORY: no resp distress, chest non-tender, breath sounds normal. No: wheezes, rales, rhonchi CVS: reg rate & rhythm, heart sounds normal, equal pulses, no murmur, no gallop ABDOMEN: soft, no organomegaly, normal bowel sounds, no abdominal bruit, no distension, tenderness (suprapubic abd area) SKIN: warm/dry, normal color, cyanosis, other (introital area normal) NEURO: oriented X3, CN's nml as tested, cognition normal Discharge Clincal Impression: Urinary tract disorder Prescriptions: Phenazopyridine HCl [Pyridium] 100 mg PO TID #21 tablet Referrals: Primary Doctor,No [Primary Care Provider] - 2 Days Additional Instructions: If you are not able to urinate you will need to have your catheter replace. Take Pyridium as directed. Make sure you contact your nurse, primary care provider and urologist about your situation. Home Medications: Ambulatory Orders Furosemide [Lasix] 80 mg PO BID 09/15/13 Albuterol Sulfate [Ventolin HFA Inhaler] 1 puff PO PRN PRN 08/30/14 Fluticasone/Salmeterol [Advair 500-50 Diskus] 1 puff PO PRN PRN 08/30/14 Quetiapine Fumarate [Seroquel] 200 mg PO PM 08/30/14 Tolterodine Tartrate [Detrol LA] 4 mg PO DAILY 08/30/14 Ropinirole HCl [Requip] 1 mg PO BID 12/05/14 Ferrous Gluconate [Iron] 236 mg PO DAILY #30 tablet 12/16/14 Naproxen [Naprosyn] 500 mg PO Q12H 10 Days 09/24/15 Phenazopyridine HCl [Pyridium] 200 mg PO TID #6 tablet 11/23/15 Phenazopyridine HCl [Pyridium] 200 mg PO Q8H #6 tablet 04/04/16 Nitrofurantoin Monohyd/M-Cryst [Macrobid] 100 mg PO BID #20 capsule 11/18/16 Phenazopyridine HCl [Pyridium] 200 mg PO TID #14 tablet 11/18/16 Phenazopyridine HCl [Pyridium] 100 mg PO TID #21 tablet 12/26/16 Condition: Stable Disposition: 01 HOME, SELF-CARE Decision to Admit: NO Date of Decison to Admit: 12/26/16 Decision Time: 00:22
[2016-12-26 05:57] LABS: APPEARANCE,URINE CLEAR (CLEAR); COLOR,URINE YELLOW (YELLOW); OCCULT BLOOD,URINE 2+ (NEGATIVE); UROBILINOGEN URINE 0.2 Eu (0.2-1.0)
== END 2016-12-26 00:51 | disposition home or self-care (01) ==
LOC: ED 22:38
DX: N39.9 Disorder of urinary system, unspecified (principal)
CPT/HCPCS: 80053; 81002; 85025; 87086; 87186; J1885; J3010; J7030; 96361; 96375; 99283; S1016

== ENCOUNTER 2016-12-29 18:57 | Emergency (ER) | payer OTHER | END 2016-12-29 19:14 | LOC: ED 18:57 | DX: Z53.21 Procedure and treatment not carried out due to patient leaving prior to being seen by health care provider (principal) ==

== ENCOUNTER 2016-12-30 23:38 | Emergency (ER) | payer OTHER ==
[2016-12-31 00:21] LABS: BASOPHILS % 0.4 (0.0-1.5); EOSINOPHILS % 1.4 % (0.0-6.8); MEAN CORPUSCULAR HEMOGLOBIN 29.5 pg (28.0-34.0); MEAN CORPUSCULAR VOLUME 88.4 fl (80.0-100.0); MONOCYTES % 3.8 % (0.0-11.0); NEUTROPHILS # 8.5 # k/uL (1.4-7.7)
[2016-12-31 00:34] LABS: eGFR (African) > 60; eGFR (Non-African) > 60
[2016-12-31] MEDS: POTASSIUM CHLORIDE 20 MEQ TABLET.ER PO ONE (00:40)
[2016-12-31 02:19] VITALS: BP 112/58
--- NOTE | 2016-12-31 04:09 | ED Physician Documentation ---
General Adult - HISTORIAN Historian: patient, paramedics - [facility] Chief Complaint: Altered Mental Status Additional Information: 51 yo F brought in by EMS with alter mental status. EMS was called for unresponsiveness. Patient was in the ED last night for the same symptoms and became awoke after given her narcan. She was given narcan tonight as well and became arose immediately. She says she take Fentanyl patch, 4 mg dilaudid, and 20 mg of Oxycontin. Pt is oriented x 3 at this time. She denies any CP or SOB or Palpitation. - ROS CONST: no problems EYES/ENT: none CVS/RESP: none GI/: none MS/SKIN/LYMPH: none NEURO/PSYCH: other (unresponsiveness) - PAST HX Past History: none Allergies/Adverse Reactions: Allergies Allergy/AdvReac Type Severity Reaction Status Date / Time morphine Allergy Severe Anaphylaxis Verified 12/25/16 23:32 phenytoin sodium Allergy Intermediate Rash Verified 12/25/16 23:32 [From Dilantin] phenytoin sodium extended Allergy Intermediate Rash Verified 12/25/16 23:32 [From Dilantin] Penicillins Allergy Mild Rash Verified 12/25/16 23:32 gabapentin Allergy Verified 12/25/16 23:32 phenobarbital AdvReac Face Verified 12/25/16 23:32 Swelling pregabalin [From Lyrica] AdvReac Rash Verified 12/25/16 23:32 tramadol AdvReac Anaphylaxis Verified 12/25/16 23:32 ADHESIVES AdvReac Unknown Rash Uncoded 08/25/16 22:23 Home Medications: Ambulatory Orders Medication Instructions Recorded Furosemide [Lasix] 80 mg PO BID 09/15/13 Albuterol Sulfate [Ventolin HFA 1 puff PO PRN PRN 08/30/14 Inhaler] Fluticasone/Salmeterol [Advair 1 puff PO PRN PRN 08/30/14 500-50 Diskus] Quetiapine Fumarate [Seroquel] 200 mg PO PM 08/30/14 Tolterodine Tartrate [Detrol LA] 4 mg PO DAILY 08/30/14 Ropinirole HCl [Requip] 1 mg PO BID 12/05/14 Ferrous Gluconate [Iron] 236 mg PO DAILY #30 tablet 12/16/14 Naproxen [Naprosyn] 500 mg PO Q12H 10 Days 09/24/15 Phenazopyridine HCl [Pyridium] 200 mg PO TID #6 tablet 11/23/15 Phenazopyridine HCl [Pyridium] 200 mg PO Q8H #6 tablet 04/04/16 Nitrofurantoin Monohyd/M-Cryst 100 mg PO BID #20 capsule 11/18/16 [Macrobid] Phenazopyridine HCl [Pyridium] 200 mg PO TID #14 tablet 11/18/16 Phenazopyridine HCl [Pyridium] 100 mg PO TID #21 tablet 12/26/16 - SOCIAL HX Smoking History: cigarettes Alcohol Use: none - FAMILY HX Family History: No - VITAL SIGNS Vital Signs: Vital Signs Temp Pulse Resp BP Pulse Ox 108/68 12/26/16 01:04 - REVIEWED ASSESSMENTS Nursing Assessment Reviewed: Yes Vitals Reviewed: Yes Progress - Progress Progress: unresponsively likely as a result of overdose of opiod medication -- considering that pt became awoke right after given the narcan--will go ahead and check ECG, routine CBC and CMP--and d/c pt to close followup with her primary doctor. Noted with hypokalemia replaced with KCL PO 20 mEq General Adult Physical Exam - PHYSICAL EXAM GENERAL APPEARANCE: no distress EENT: eye inspection normal, ENT inspection normal, pharynx normal, no signs of dehydration, RICARDO, no nystagmus, TM's nml NECK: normal inspection, thyroid normal RESPIRATORY: no resp distress, chest non-tender, breath sounds normal CVS: reg rate & rhythm, heart sounds normal, equal pulses, no murmur, no gallop , PMI nml, no JVD, no friction rub, 24 ABDOMEN: soft, no organomegaly, normal bowel sounds, no abdominal bruit, no distension BACK: normal inspection, no CVA tenderness SKIN: normal color, warm/dry, NR, INT, PAL, DR EXTREMITIES: non-tender, normal range of motion, no evidence of injury, no edema , J, [employer] NEURO: oriented X3, CN's nml as tested, motor nml, sensation nml, mood/affect nml Discharge Clincal Impression: Hypokalemia Overdose Qualifiers: Encounter type: initial encounter Injury intent: accidental or unintentional Qualified Code(s): T50.901A - Poisoning by unspecified drugs, medicaments and biological substances, accidental (unintentional), initial encounter Referrals: Primary Doctor,No [Primary Care Provider] - 2 Days Home Medications: Ambulatory Orders Furosemide [Lasix] 80 mg PO BID 09/15/13 Albuterol Sulfate [Ventolin HFA Inhaler] 1 puff PO PRN PRN 08/30/14 Fluticasone/Salmeterol [Advair 500-50 Diskus] 1 puff PO PRN PRN 08/30/14 Quetiapine Fumarate [Seroquel] 200 mg PO PM 08/30/14 Tolterodine Tartrate [Detrol LA] 4 mg PO DAILY 08/30/14 Ropinirole HCl [Requip] 1 mg PO BID 12/05/14 Ferrous Gluconate [Iron] 236 mg PO DAILY #30 tablet 12/16/14 Naproxen [Naprosyn] 500 mg PO Q12H 10 Days 09/24/15 Phenazopyridine HCl [Pyridium] 200 mg PO TID #6 tablet 11/23/15 Phenazopyridine HCl [Pyridium] 200 mg PO Q8H #6 tablet 04/04/16 Nitrofurantoin Monohyd/M-Cryst [Macrobid] 100 mg PO BID #20 capsule 11/18/16 Phenazopyridine HCl [Pyridium] 200 mg PO TID #14 tablet 11/18/16 Phenazopyridine HCl [Pyridium] 100 mg PO TID #21 tablet 12/26/16 Condition: Stable Disposition: 01 HOME, SELF-CARE Decision to Admit: NO Decision Time: 23:00
== END 2016-12-31 00:50 | disposition home or self-care (01) ==
LOC: ED 23:38
DX: E87.6 Hypokalemia (principal); T50.901A Poisoning by unspecified drugs, medicaments and biological substances, accidental (unintentional), initial encounter; X58.XXXA Exposure to other specified factors, initial encounter; Y93.9 Activity, unspecified; Y99.9 Unspecified external cause status
CPT/HCPCS: 80053; 85025; 99284

== ENCOUNTER 2017-01-07 17:17 | Emergency (ER) | payer OTHER ==
[2017-01-07] MEDS ORDERED: 0.9 % SODIUM CHLORIDE 1,000 ML IV ONE (18:03)
[2017-01-07] MEDS: 0.9 % SODIUM CHLORIDE 1,000 ML IV SCH (18:05)
[2017-01-07] MEDS: HYDROmorphone HCL/PF 1 MG/ML DISP.SYRIN IVP ONE ×2 (18:08→21:29)
[2017-01-07 18:10] LABS: BASOPHILS % 0.5 (0.0-1.5); EOSINOPHILS % 2.2 % (0.0-6.8); MEAN CORPUSCULAR HEMOGLOBIN 28.8 pg (28.0-34.0); MEAN CORPUSCULAR VOLUME 88.2 fl (80.0-100.0); MONOCYTES % 4.2 % (0.0-11.0); NEUTROPHILS # 5.6 # k/uL (1.4-7.7)
[2017-01-07 18:23] LABS: eGFR (African) > 60; eGFR (Non-African) > 60
[2017-01-07] MEDS: HALOPERIDOL LACTATE 5 MG/ML VIAL IM ONE (19:22)
[2017-01-07] MEDS: POTASSIUM CHLORIDE 20 MEQ TABLET.ER PO ONE (20:33)
[2017-01-07] MEDS: HYOSCYAMINE SULFATE 0.125 MG TAB.SUBL SL ONE (20:33)
--- NOTE | 2017-01-07 21:28 | Diagnostic Imaging Report ---
LICHA CORADO~ [facility] [address] [facility] [address] [place], [place]. [address] ~ ~ ~ ~ Report Submission Date: Jan 07, 2017 6:46:50 PM CDT Patient ~ Study Name: ADITHYA HOOD ~ Date: Jan 07, 2017 6:21:11 PM CDT ~ Modality Type: CT\SR Gender: F ~ Description: CT ABD & PELVIS W/O CO : 67 ~ Institution: [facility] Physician: LICHA CORADO ~ ~ ~ ~ CT abdomen and pelvis without IV contrast Clinical history: Generalized abdominal pain Radiation dose DLP [id number] No visible focal hepatic or splenic pathology. Normal pancreas and adrenal gland. Status post cholecystectomy. Normal kidneys without stones. No abdominal aortic aneurysm. Normal appendix. No bowel obstruction. Umbilical hernia with herniated omental fat without bowel obstruction. Carter catheter is in the bladder. Mild lumbar spondylosis No free fluid or free air in the abdomen or pelvis . Impression: No bowel obstruction, no free fluid or free air in the abdomen or pelvis 3 cm umbilical hernia with herniated omental fat. No visible inflammatory process in the abdomen or pelvis ~ Electronically signed on Jan 07, 2017 6:46:50 PM CDT by: Ignacio HAILE
--- NOTE | 2017-01-07 21:29 | Diagnostic Imaging Report ---
LICHA CORADO~ [facility] [address] [facility] [address] ~ ~ ~ ~ Report Submission Date: Jan 07, 2017 7:28:36 PM CDT Patient ~ Study Name: ADITHYA HOOD ~ Date: Jan 07, 2017 7:14:42 PM CDT ~ Modality Type: CR Gender: F ~ Description: CHEST : 67 ~ Institution: [facility] Physician: LICHA CORADO ~ ~ ~ ~ Chest AP single view Clinical history: Chest pain Normal heart shadow and mediastinum. Clear lungs without acute infiltrate or pleural effusion. No pneumothorax. Impression: No active pulmonary pathology ~ Electronically signed on Jan 07, 2017 7:28:36 PM CDT by: Ignacio HAILE
[2017-01-08 01:42] VITALS: BP 102/60
--- NOTE | 2017-01-08 07:36 | ED Physician Documentation ---
Abdominal Pain - HISTORIAN Historian: patient - HPI Stated Complaint: Diarrhea/Weakness Chief Complaint: Abdominal Pain Additonal Information: diarrhea x 4 weeks since out of dilaudid Onset: days ago (30) Duration: persistent Timing: still present Context: denies: out of country travel, bad food, recent trauma Severity: moderate Quality: aching (left lower quadrant) Associated Symptoms: diarrhea. denies: fever, chills, nausea, vomiting, coffee ground emesis, bloody emesis, sweating, loss of appetite, chest pain Exacerbated by: nothing Relieved by: nothing Further Comments: no - ROS CONST: no problems GI/: other (diarrhea) CVS/RESP: none EYES/ENT: none MS/SKIN/LYMPH: none NEURO/PSYCH: none - SOCIAL HX Smoking History: cigarettes Alcohol Use: none Drug Use: none - FAMILY HX Family History: no significant history - PAST HX Past History: other (melanoma) Ischemic Bowel Risk Factors: low BP Other History: diabetes Type 2 Surgeries/Procedures: none Immunizations: referred to PCP Home Medications: Ambulatory Orders Medication Instructions Recorded Furosemide [Lasix] 80 mg PO BID 09/15/13 Albuterol Sulfate [Ventolin HFA 1 puff PO PRN PRN 08/30/14 Inhaler] Fluticasone/Salmeterol [Advair 1 puff PO PRN PRN 08/30/14 500-50 Diskus] Quetiapine Fumarate [Seroquel] 200 mg PO PM 08/30/14 Tolterodine Tartrate [Detrol LA] 4 mg PO DAILY 08/30/14 Ropinirole HCl [Requip] 1 mg PO BID 12/05/14 Ferrous Gluconate [Iron] 236 mg PO DAILY #30 tablet 12/16/14 Naproxen [Naprosyn] 500 mg PO Q12H 10 Days 09/24/15 Phenazopyridine HCl [Pyridium] 200 mg PO TID #6 tablet 11/23/15 Phenazopyridine HCl [Pyridium] 200 mg PO Q8H #6 tablet 04/04/16 Nitrofurantoin Monohyd/M-Cryst 100 mg PO BID #20 capsule 11/18/16 [Macrobid] Phenazopyridine HCl [Pyridium] 200 mg PO TID #14 tablet 11/18/16 Phenazopyridine HCl [Pyridium] 100 mg PO TID #21 tablet 12/26/16 Hydromorphone HCl [Dilaudid] 4 mg PO 01/07/17 fentaNYL 50 MCG [Duragesic] 1 each TD Q72 01/07/17 oxyCODONE HCL [OxyCONTIN] 20 mg PO 01/07/17 Allergies/Adverse Reactions: Allergies Allergy/AdvReac Type Severity Reaction Status Date / Time morphine Allergy Severe Anaphylaxis Verified 01/07/17 17:35 phenytoin sodium Allergy Intermediate Rash Verified 01/07/17 17:35 [From Dilantin] phenytoin sodium extended Allergy Intermediate Rash Verified 01/07/17 17:35 [From Dilantin] Penicillins Allergy Mild Rash Verified 01/07/17 17:35 gabapentin Allergy Verified 01/07/17 17:35 phenobarbital AdvReac Face Verified 01/07/17 17:35 Swelling pregabalin [From Lyrica] AdvReac Rash Verified 01/07/17 17:35 tramadol AdvReac Anaphylaxis Verified 01/07/17 17:35 ADHESIVES AdvReac Unknown Rash Uncoded 01/07/17 17:35 - VITAL SIGNS Vital Signs: Vital Signs Temp Pulse Resp BP Pulse Ox 97.8 F 72 16 102/60 99 01/07/17 22:00 01/07/17 22:00 01/07/17 22:00 01/07/17 22:00 01/07/17 22:00 - REVIEWED ASSESSMENTS Nursing Assessment Reviewed: Yes Vitals Reviewed: Yes Progress - Results/Orders Results/Orders: cbc, cmp, ct abdomen/pelvis, ua ordered - Progress Progress: New Carter placed by nursing, assisted secondary to leakage, Pt. given total of 1.5 mg of Dilaudid iv, 1 liter of ns iv, 10 mg haldol im and 0.25 mg hyoscyamine p.o. in er. Pt. improved at time of discharge. Critical Care Note - Critical Care Note Total Time (mins): 0 ED Results Lab/Radiology - Lab Results Lab Results: Lab Results 01/07/17 01/07/17 18:04 18:04 WBC 8.00 K/ul K/ul (4.00-12.00) RBC 4.80 M/ul M/ul (3.90-5.20) Hgb 13.8 g/dL g/dL (12.0-16.0) Hct 42.3 % % (34.5-46.5) MCV 88.2 fl fl (80.0-100.0) MCH 28.8 pg pg (28.0-34.0) MCHC 32.7 g/dL g/dL (30.0-36.0) RDW 15.6 % H % (11.3-14.3) Plt Count 319 K/mm3 K/mm3 (130-400) Neut % (Auto) 70.3 % % (39.0-79.0) Lymph % (Auto) 21.6 % % (16.0-50.0) Cascade % (Auto) 4.2 % % (0.0-11.0) Eos % (Auto) 2.2 % % (0.0-6.8) Baso % (Auto) 0.5 (0.0-1.5) Neut # (Auto) 5.6 # k/uL # k/uL (1.4-7.7) Lymph # (Auto) 1.7 # k/uL # k/uL (0.6-4.0) Cascade # (Auto) 0.3 # k/uL # k/uL (0.0-0.9) Eos # (Auto) 0.2 # k/uL # k/uL (0.0-0.6) Baso # (Auto) 0.0 # k/uL # k/uL (0.0-0.5) Reactive Lymphs % 1.3 % % (0.0-5.0) Reactive Lymphs # 0.1 # k/uL # k/uL (0.0-0.8) Sodium 141 mmol/L mmol/L (136-145) Potassium 3.2 mmol/L L mmol/L (3.5-5.0) Chloride 103 mmol/L mmol/L (98-110) Carbon Dioxide 33 mmol/L H mmol/L (20-32) BUN 8 mg/dL L mg/dL (10-26) Creatinine 0.7 mg/dL mg/dL (0.4-1.5) Estimated Creat Clear 213 Est GFR ( Amer) > 60 (60 - ) Est GFR (Non-Af Amer) > 60 (60 - ) Glucose 104 mg/dL H mg/dL (70-99) Calcium 10.1 mg/dL mg/dL (8.5-10.5) Total Bilirubin 0.2 mg/dL mg/dL (0.2-1.2) AST 22 U/L U/L (0-41) ALT 22 U/L U/L (0-45) Alkaline Phosphatase 72 U/L U/L (46-116) Total Protein 8.4 g/dL g/dL (6.0-8.5) Albumin 4.4 g/dL g/dL (3.0-5.5) Amylase 20 U/L U/L (20-104) - Radiology Radiology Impressions: ct abdomen/pelvis neg for gi pathology - Orders Orders: ED Orders Category Date Time Status Carter [Urinary catheterization] 1T Care 01/07/17 20:[address] IV Lock 1T Care 01/07/17 17:56 Active CHEST 1 VIEW [RAD] Routine Exams 01/07/[address] ABD & PELVIS W/O CON Stat Exams 01/07/17 Completed AMYLASE Routine Lab 01/07/17 18:04 Completed CBC/PLATELET/DIFF Routine Lab 01/07/17 18:04 Completed CMP Routine Lab 01/07/17 18:04 Completed 0.9 % Sodium Chloride [Normal Saline] 1,000 ml Med 01/07/17 18:00 Discontinued IV .Q1H 0.9 % Sodium Chloride [Normal Saline] 1,000 ml Med 01/07/17 18:03 Discontinued IV .STK-MED HYDROmorphone HCL/PF [Dilaudid] Med 01/07/17 21:06 Discontinued 0.5 mg IVP NOW ONE HYDROmorphone HCL/PF [Dilaudid] Med 01/07/17 18:00 Discontinued 1 mg IVP NOW ONE Haloperidol Lactate [Haldol] Med 01/07/17 18:59 Discontinued 10 mg IM NOW ONE Hyoscyamine Sulfate [Oscimin Sl] Med 01/07/17 20:22 Discontinued 0.25 mg SL Q6H ONE Potassium Chloride [Klor-Con M20] Med 01/07/17 20:17 Discontinued 40 meq PO NOW ONE EKG WITH COMPARISON Routine Ther 01/07/17 Ordered Abdominal Pain Physical Exam - Physical Exam General Appearance: alert, mild distress EENT: eye inspection normal, ENT inspection normal, pharynx normal, no signs of dehydration, RICARDO, no nystagmus, TM's nml NECK: normal inspection, thyroid normal, supple RESPIRATORY: no resp distress, chest non-tender, breath sounds normal CVS: reg rate & rhythm, heart sounds normal, equal pulses ABDOMEN: soft, normal bowel sounds, tenderness (left lower quadrant in area of hernia, no incarceration) BACK: normal inspection, no CVA tenderness SKIN: warm/dry, normal color EXTREMITIES: non-tender, normal range of motion, no evidence of injury, no edema NEURO: oriented X3, CN's nml as tested, motor nml, sensation nml, mood/affect nml, cognition normal Vital Signs: Vital Signs Temp Pulse Resp BP Pulse Ox 97.8 F 72 16 102/60 99 01/07/17 22:00 01/07/17 22:00 01/07/17 22:00 01/07/17 22:00 01/07/17 22:00 Discharge Clincal Impression: Diarrhea Qualifiers: Diarrhea type: functional diarrhea Qualified Code(s): K59.1 - Functional diarrhea Referrals: Primary Doctor,No [Primary Care Provider] - 2 Days Home Medications: Ambulatory Orders Furosemide [Lasix] 80 mg PO BID 09/15/13 Albuterol Sulfate [Ventolin HFA Inhaler] 1 puff PO PRN PRN 08/30/14 Fluticasone/Salmeterol [Advair 500-50 Diskus] 1 puff PO PRN PRN 08/30/14 Quetiapine Fumarate [Seroquel] 200 mg PO PM 08/30/14 Tolterodine Tartrate [Detrol LA] 4 mg PO DAILY 08/30/14 Ropinirole HCl [Requip] 1 mg PO BID 12/05/14 Ferrous Gluconate [Iron] 236 mg PO DAILY #30 tablet 12/16/14 Naproxen [Naprosyn] 500 mg PO Q12H 10 Days 09/24/15 Phenazopyridine HCl [Pyridium] 200 mg PO TID #6 tablet 11/23/15 Phenazopyridine HCl [Pyridium] 200 mg PO Q8H #6 tablet 04/04/16 Nitrofurantoin Monohyd/M-Cryst [Macrobid] 100 mg PO BID #20 capsule 11/18/16 Phenazopyridine HCl [Pyridium] 200 mg PO TID #14 tablet 11/18/16 Phenazopyridine HCl [Pyridium] 100 mg PO TID #21 tablet 12/26/16 Hydromorphone HCl [Dilaudid] 4 mg PO 01/07/17 fentaNYL 50 MCG [Duragesic] 1 each TD Q72 01/07/17 oxyCODONE HCL [OxyCONTIN] 20 mg PO 01/07/17 Comments: Pt. discharged with scripts for Hyoscyamine 0.125 mg #30 2 p.o. ac and hs, Dilaudid 4 mg #10 1 p.o. qid prn pain. Condition: Stable Disposition: 01 HOME, SELF-CARE Decision to Admit: NO Decision Time: 21:50
== END 2017-01-07 22:00 | disposition home or self-care (01) ==
LOC: ED 17:17
DX: K59.1 Functional diarrhea (principal)
CPT/HCPCS: 71010; 74176; 80053; 82150; 85025; A9270; J1170; J1630; J7030; 96361; 96372; 96374; 96376; 99283; S1016

== ENCOUNTER 2017-04-27 18:56 | Emergency (ER) | payer OTHER ==
[2017-04-27] MEDS ORDERED: IPRATROPIUM/ALBUTEROL SULFATE 3 ML AMPUL.NEB NEB ONE (19:40)
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
[2017-04-27] MEDS: IPRATROPIUM/ALBUTEROL SULFATE 3 ML AMPUL.NEB NEB STA (19:45)
[2017-04-27 20:01] LABS: BASOPHILS % 0.7 (0.0-1.5); EOSINOPHILS % 2.4 % (0.0-6.8); MEAN CORPUSCULAR HEMOGLOBIN 28.8 pg (28.0-34.0); MEAN CORPUSCULAR VOLUME 90.7 fl (80.0-100.0); MONOCYTES % 3.2 % (0.0-11.0); NEUTROPHILS # 6.2 # k/uL (1.4-7.7)
[2017-04-27 20:09] VITALS: BP 104/68
[2017-04-27 20:16] LABS: eGFR (African) > 60; eGFR (Non-African) > 60
[2017-04-27] MEDS: BENZONATATE 100 MG CAPSULE PO ONE (20:35)
[2017-04-27] MEDS: predniSONE 20 MG TABLET PO ONE (20:35)
== END 2017-04-27 20:40 | disposition home or self-care (01) ==
LOC: ED 18:56
DX: R06.2 Wheezing (principal); J44.1 Chronic obstructive pulmonary disease with (acute) exacerbation
CPT/HCPCS: 80048; 85025; A9270; 99283

== ENCOUNTER 2017-12-05 14:09 | Emergency (ER) | payer OTHER ==
[2017-12-05] MEDS ORDERED: ORPHENADRINE CITRATE 60 MG/2ML IM ONE (14:11)
[2017-12-05] MEDS ORDERED: BUTORPHANOL TARTRATE 2 MG/ML VIAL IM ONE (14:11)
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
[2017-12-05 15:08] VITALS: BP 188/81
== END 2017-12-05 15:05 | disposition home or self-care (01) ==
LOC: ED 14:09
DX: M54.5 Low back pain (principal)
CPT/HCPCS: J0595; J2360; 96372; 99284

== ENCOUNTER 2017-12-15 19:08 | Emergency (ER) | payer OTHER ==
[2017-12-15] MEDS ORDERED: ORPHENADRINE CITRATE 60 MG/2ML IV ONE (19:35)
[2017-12-15] MEDS ORDERED: KETOROLAC TROMETHAMINE 30 MG/1ML VIAL IVP ONE (19:35)
[2017-12-15] MEDS ORDERED: HALOPERIDOL LACTATE 5 MG/ML VIAL IM ONE (19:35)
[2017-12-15 19:58] LABS: BASOPHILS % 0.6 (0.0-1.5); EOSINOPHILS % 1.2 % (0.0-6.8); MEAN CORPUSCULAR HEMOGLOBIN 28.5 pg (28.0-34.0); MEAN CORPUSCULAR VOLUME 88.5 fl (80.0-100.0); MONOCYTES % 5.6 % (0.0-11.0); NEUTROPHILS # 4.9 # k/uL (1.4-7.7)
[2017-12-15 20:15] LABS: eGFR (African) > 60; eGFR (Non-African) > 60
[2017-12-15] MEDS ORDERED: CYCLOBENZAPRINE HCL 5 MG TABLET PO ONE (21:36)
[2017-12-15] MEDS ORDERED: CYCLOBENZAPRINE HCL 5 MG TABLET ONE (21:37)
[2017-12-15 22:14] LABS: CANNABINOIDS NON NEGATIVE ng/mL (< 50); METHYLENEDIOXYMETHAMPHETAMINE NEGATIVE ng/mL (<500)
[2017-12-15 22:25] LABS: APPEARANCE,URINE CLEAR (CLEAR); COLOR,URINE YELLOW (YELLOW)
[2017-12-15 22:26] LABS: OCCULT BLOOD,URINE 3+ (NEGATIVE); UROBILINOGEN URINE 0.2 Eu (0.2-1.0)
[2017-12-15] MEDS ORDERED: PROMETHAZINE HCL 12.5 MG in 0.9 % SODIUM CHLORIDE 50 ML IV ONE (23:05)
[2017-12-15] MEDS ORDERED: HYDROmorphone HCL/PF 2 MG/ML DISP.SYRIN IVP ONE (23:06)
[2017-12-15] MEDS ORDERED: PROMETHAZINE HCL 25 MG/ML VIAL ONE (23:07)
[2017-12-16 02:32] VITALS: BP 128/72
--- NOTE | 2017-12-16 16:45 | ED Physician Documentation ---
Low Back Pain - HISTORIAN Historian: patient - HPI Stated Complaint: Seizure-like activity Chief Complaint: Low Back Pain/ Injury Additional Information: Pt. states no injury but low back hurting making her feel like she will have seizures. Seizure diagnosis since youth. History: history of chronic pain:, back pain Onset: other (today) Duration: continues in ED Recent Injury: No Context: other (sudden onset) Where: other ([facility]) Other Injuries: other (none) Severity: severe Quality: sharp Front/Back of Body, Lg (Color): 1 - pain Associated Symptoms: other (pt. describes seizure like activity but observed to be talking and purposely moving during these spells, pt. in highly agitated state) Worsened By:: other (movement) Relieved By: other (nothing) Further Comments: no - ROS CONST: no problems CVS/RESP: none EYES/ENT: none MS/SKIN/LYMPH: none Neuro/Psych: other (hx f seizure activity) GI/: denies: abdominal pain, black stools - PAST HX Past History: other (anxiety, cancer, chronic low back pain, type 2 dm, seizures ) Immunizations: referred to PCP Allergies/Adverse Reactions: Allergies Allergy/AdvReac Type Severity Reaction Status Date / Time morphine Allergy Severe Anaphylaxis Verified 12/15/17 19:23 phenytoin sodium Allergy Intermediate Rash Verified 12/15/17 19:23 [From Dilantin] phenytoin sodium extended Allergy Intermediate Rash Verified 12/15/17 19:23 [From Dilantin] Penicillins Allergy Mild Rash Verified 12/15/17 19:23 gabapentin Allergy Verified 12/15/17 19:23 phenobarbital AdvReac Face Verified 12/15/17 19:23 Swelling pregabalin [From Lyrica] AdvReac Rash Verified 12/15/17 19:23 tramadol AdvReac Anaphylaxis Verified 12/15/17 19:23 ADHESIVES AdvReac Unknown Rash Uncoded 12/15/17 19:23 Home Medications: Ambulatory Orders Medication Instructions Recorded Furosemide [Lasix] 80 mg PO BID 09/15/13 Albuterol Sulfate [Ventolin HFA 1 puff PO PRN PRN 02/20/15 Inhaler] Fluticasone/Salmeterol [Advair 1 puff PO PRN PRN 08/30/14 500-50 Diskus] Quetiapine Fumarate [Seroquel] 200 mg PO PM 08/30/14 Tolterodine Tartrate [Detrol LA] 4 mg PO DAILY 08/30/14 Ropinirole HCl [Requip] 1 mg PO BID 12/05/14 Ferrous Gluconate [Iron] 236 mg PO DAILY #30 tablet 12/16/14 Naproxen [Naprosyn] 500 mg PO Q12H 10 Days tablet 09/24/15 Nitrofurantoin Monohyd/M-Cryst 100 mg PO BID #20 capsule 11/18/16 [Macrobid] Phenazopyridine HCl [Pyridium] 100 mg PO TID #21 tablet 12/26/16 Hydromorphone HCl [Dilaudid] 4 mg PO TID 01/07/17 fentaNYL 50 MCG [Duragesic] 1 each TD Q72 01/07/17 oxyCODONE HCL [OxyCONTIN] 20 mg PO 01/07/17 Prednisone 20 mg PO DAILY #8 tablet 04/27/17 - SOCIAL HX Smoking History: cigarettes Alcohol Use: none Drug Use: marijuana, methamphetamines - FAMILY HX Family History: no significant history - VITAL SIGNS Vital Signs: Vital Signs Temp Pulse Resp BP Pulse Ox 98.5 F 72 16 128/72 96 12/15/17 19:10 12/16/17 01:00 12/16/17 01:00 12/16/17 01:00 12/16/17 01:00 - REVIEWED ASSESSMENTS Nursing Assessment Reviewed: Yes Vitals Reviewed: Yes Progress - Results/Orders Results/Orders: ct abdomen/pelvis, uds, ua, cbc, cmp, amylase, blood cultures ordered - Progress Progress: Pt. given Flexeril 20 mg p.o., Norflex 60 mg IVP, Haldol 10 mg IM, Toradol 30 mg IVP ans Phenergan 12.5 mg IVP. Pt. still in pain so given 2 mg Dilaudid IVP which finally alleviated pain. Critical Care Note - Critical Care Note Total Time (mins): 0 ED Results Lab/Radiology - Lab Results Lab Results: Lab Results 12/15/17 12/15/17 12/15/17 19:55 19:55 19:43 WBC RBC Hgb Hct MCV MCH MCHC RDW Plt Count Neut % (Auto) Lymph % (Auto) [place] % (Auto) Eos % (Auto) Baso % (Auto) Neut # (Auto) Lymph # (Auto) [place] # (Auto) Eos # (Auto) Baso # (Auto) Reactive Lymphs % Reactive Lymphs # Sodium 139 mmol/L mmol/L (136-145) Potassium 3.9 mmol/L mmol/L (3.5-5.1) Chloride 101 mmol/L mmol/L (98-107) Carbon Dioxide 31 mmol/L H mmol/L (22-30) BUN 7 mg/dL mg/dL (7-17) Creatinine 0.60 mg/dL mg/dL (0.52-1.04) Estimated Creat Clear 141 Est GFR ( Amer) > 60 (60 - ) Est GFR (Non-Af Amer) > 60 (60 - ) Glucose 83 mg/dL mg/dL (74-106) Calcium 9.6 mg/dL mg/dL (8.4-10.2) Total Bilirubin < 0.1 mg/dL L mg/dL (0.2-1.3) AST 16 U/L U/L (15-46) ALT 27 U/L U/L (13-69) Alkaline Phosphatase 51 U/L U/L (38-126) Total Protein 7.6 g/dL g/dL (6.3-8.2) Albumin 3.9 g/dL g/dL (3.5-5.0) Urine Color Yellow (YELLOW) Urine Appearance Clear (CLEAR) Urine pH 7.0 (5.0 - 8.0) Ur Specific [place] 1.020 (1.010-1.030) Urine Protein Negative mg/dL mg/dL (NEGATIVE) Urine Ketones Negative mg/dL mg/dL (NEGATIVE) Urine Occult Blood 3+ H (NEGATIVE) Urine Nitrite Positive H (NEGATIVE) Urine Bilirubin Negative (NEGATIVE) Urine Urobilinogen 0.2 Eu Eu (0.2-1.0) Ur Leukocyte Esterase Trace H (NEGATIVE) Urine Glucose Negative mg/dL mg/dL (NEGATIVE) Opiates Screen Negative ng/mL ng/mL (<300) Oxycodone Screen Negative ng/mL ng/mL (<100) Methadone Screen Negative ng/mL ng/mL (<200) Ur Barbiturates Screen Negative ng.mL ng.mL (<200) Tricyclic Antidepress Negative ng/mL ng/mL (<300) Phencyclidine Screen Negative ng/mL ng/mL (< 25) Amphetamines Screen Negative ng/mL ng/mL (<500) U Methamphetamines Scrn Non negative ng/mL H ng/mL (<500) MDMA Negative ng/mL ng/mL (<500) Benzodiazepines Screen Negative ng/mL ng/mL (<150) Urine Cocaine Screen Negative ng/mL ng/mL (<150) U Cannabinoids Screen Non negative ng/mL H ng/mL (< 50) 12/15/17 19:43 WBC 7.70 K/ul K/ul (4.00-12.00) RBC 4.98 M/ul M/ul (3.90-5.20) Hgb 14.2 g/dL g/dL (12.0-16.0) Hct 44.1 % % (34.5-46.5) MCV 88.5 fl fl (80.0-100.0) MCH 28.5 pg pg (28.0-34.0) MCHC 32.2 g/dL g/dL (30.0-36.0) RDW 14.1 % % (11.3-14.3) Plt Count 336 K/mm3 K/mm3 (130-400) Neut % (Auto) 63.5 % % (39.0-79.0) Lymph % (Auto) 26.9 % % (16.0-50.0) [place] % (Auto) 5.6 % % (0.0-11.0) Eos % (Auto) 1.2 % % (0.0-6.8) Baso % (Auto) 0.6 (0.0-1.5) Neut # (Auto) 4.9 # k/uL # k/uL (1.4-7.7) Lymph # (Auto) 2.1 # k/uL # k/uL (0.6-4.0) [place] # (Auto) 0.4 # k/uL # k/uL (0.0-0.9) Eos # (Auto) 0.1 # k/uL # k/uL (0.0-0.6) Baso # (Auto) 0.0 # k/uL # k/uL (0.0-0.5) Reactive Lymphs % 2.3 % % (0.0-5.0) Reactive Lymphs # 0.2 # k/uL # k/uL (0.0-0.8) Sodium Potassium Chloride Carbon Dioxide BUN Creatinine Estimated Creat Clear Est GFR ( Amer) Est GFR (Non-Af Amer) Glucose Calcium Total Bilirubin AST ALT Alkaline Phosphatase Total Protein Albumin Urine Color Urine Appearance Urine pH Ur Specific [place] Urine Protein Urine Ketones Urine Occult Blood Urine Nitrite Urine Bilirubin Urine Urobilinogen Ur Leukocyte Esterase Urine Glucose Opiates Screen Oxycodone Screen Methadone Screen Ur Barbiturates Screen Tricyclic Antidepress Phencyclidine Screen Amphetamines Screen U Methamphetamines Scrn MDMA Benzodiazepines Screen Urine Cocaine Screen U Cannabinoids Screen - Radiology Radiology Impressions: CT abdomen and pelvis unremarkable - Orders Orders: ED Orders Category Date Time Status AMPHETAMINES,QUANT,URINE Routine Lab 12/15/17 19:55 Received BLOOD CULTURE Routine Lab 12/15/17 19:43 Received CBC/PLATELET/DIFF Routine Lab 12/15/17 19:43 Completed CMP Routine Lab 12/15/17 19:43 Completed DRUG SCREEN URINE MEDICAL ONLY Routine Lab 12/15/17 19:55 Completed UA MACRO DIP ONLY Routine Lab 12/15/17 19:55 Completed URINE CULTURE Routine Lab 12/15/17 19:55 Received Chem Sticks Med 12/15/17 20:00 Discontinued 1 each CHEMQID Cyclobenzaprine HCl [Flexeril] Med 12/15/17 21:37 Discontinued 20 mg .ROUTE .STK-MED ONE Cyclobenzaprine HCl [Flexeril] Med 12/15/17 21:36 Discontinued 20 mg PO NOW ONE HYDROmorphone HCL/PF [Dilaudid] Med 12/15/17 23:06 Discontinued 2 mg IVP NOW ONE Haloperidol Lactate [Haldol] Med 12/15/17 19:35 Discontinued 10 mg IM NOW ONE Ketorolac Tromethamine [Toradol] Med 12/15/17 19:35 Discontinued 30 mg IVP NOW ONE Orphenadrine Citrate [Norflex] Med 12/15/17 19:35 Discontinued 60 mg IV NOW ONE Promethazine HCl [Phenergan] Med 12/15/17 23:07 Discontinued 25 mg .ROUTE .STK-MED ONE Promethazine HCl [Phenergan] 12.5 mg Med 12/15/17 23:05 Discontinued 0.9 % Sodium Chloride [Sodium Chloride] 50 ml IV NOW Low Back Pain/Injury - Physical Exam General Appearance: alert, moderate distress EENT: eye inspection normal, ENT inspection normal, pharynx normal, no signs of dehydration, RICARDO, no nystagmus Neck: non-tender, painless ROM, trachea midline Resp/CVS: chest non-tender, breath sounds nml, heart sounds nml, no resp. distress, lungs clear, reg. rate & rhythm Abdomen: non-tender, no organomegaly Back: other (tenderness left paravertebral lumbar muscles) Straight Leg Raising: Positive Left Neuro/Psych: oriented x3, motor nml, sensation nml, reflexes nml, other ( anxiety and exaggerated pain response) Skin: warm/dry Extremities: non-tender, normal range of motion, no evidence of injury Discharge Clincal Impression: Low back pain Qualifiers: Chronicity: acute Back pain laterality: left Sciatica presence: with sciatica Sciatica laterality: sciatica of left side Qualified Code(s): M54.42 - Lumbago with sciatica, left side Referrals: Primary Doctor,No [Primary Care Provider] - 2 Days Comments: Discharged home with scripts for Keppra 500 mg p.o. bid #60, Meloxicam 1 pill twice daily #10, Parafon Forte DSC 500 mg 1 p.o. qid #20 and Keflex 500 mg 2 p.o. bid x 10 days. Condition: Stable Disposition: 01 HOME, SELF-CARE Decision to Admit: NO Decision Time: 01:00
== END 2017-12-16 01:00 | disposition home or self-care (01) ==
LOC: ED 19:08
DX: M54.42 Lumbago with sciatica, left side (principal)
CPT/HCPCS: 80053; 80377; 81002; 85025; 87040; 87086; 87186; J1170; J1630; J1885; J2360; J2550; 96365; 96372; 96375; 99284; G0481

== ENCOUNTER 2017-12-29 19:13 | Emergency (ER) | payer OTHER ==
--- NOTE | 2017-12-29 19:27 | ED Physician Documentation ---
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 Non verbal, but moves about. Positive eyelash test per EMS. She cannot contribute in any meaningful way to CC. HPI, ROS. - ROS CONST: no problems - PAST HX Past History: other (HTN, chronic pain, drug seeking behaviors) Allergies/Adverse Reactions: Allergies Allergy/AdvReac Type Severity Reaction Status Date / Time morphine Allergy Severe Anaphylaxis Verified 12/15/17 19:23 phenytoin sodium Allergy Intermediate Rash Verified 12/15/17 19:23 [From Dilantin] phenytoin sodium extended Allergy Intermediate Rash Verified 12/15/17 19:23 [From Dilantin] Penicillins Allergy Mild Rash Verified 12/15/17 19:23 gabapentin Allergy Verified 12/15/17 19:23 phenobarbital AdvReac Face Verified 12/15/17 19:23 Swelling pregabalin [From Lyrica] AdvReac Rash Verified 12/15/17 19:23 tramadol AdvReac Anaphylaxis Verified 12/15/17 19:23 ADHESIVES AdvReac Unknown Rash Uncoded 12/15/17 19:23 Home Medications: Ambulatory Orders Medication Instructions Recorded Furosemide [Lasix] 80 mg PO BID 09/15/13 Albuterol Sulfate [Ventolin HFA 1 puff PO PRN PRN 08/30/14 Inhaler] Fluticasone/Salmeterol [Advair 1 puff PO PRN PRN 08/30/14 500-50 Diskus] Quetiapine Fumarate [Seroquel] 200 mg PO PM 08/30/14 Tolterodine Tartrate [Detrol LA] 4 mg PO DAILY 08/30/14 Ropinirole HCl [Requip] 1 mg PO BID 12/05/14 Ferrous Gluconate [Iron] 236 mg PO DAILY #30 tablet 12/16/14 Naproxen [Naprosyn] 500 mg PO Q12H 10 Days tablet 09/24/15 Nitrofurantoin Monohyd/M-Cryst 100 mg PO BID #20 capsule 11/18/16 [Macrobid] Phenazopyridine HCl [Pyridium] 100 mg PO TID #21 tablet 12/26/16 Hydromorphone HCl [Dilaudid] 4 mg PO TID 01/07/17 fentaNYL 50 MCG [Duragesic] 1 each TD Q72 01/07/17 oxyCODONE HCL [OxyCONTIN] 20 mg PO 01/07/17 Prednisone 20 mg PO DAILY #8 tablet 04/27/17 - SOCIAL HX Smoking History: cigarettes - FAMILY HX Family History: No - VITAL SIGNS Vital Signs: Vital Signs Temp Pulse Resp BP Pulse Ox 128/72 12/16/17 01:00 - REVIEWED ASSESSMENTS Nursing Assessment Reviewed: Yes Vitals Reviewed: Yes General Adult Physical Exam - PHYSICAL EXAM GENERAL APPEARANCE: no distress EENT: ENT inspection normal, pharynx normal, no signs of dehydration, other ( unable to adequately check eyes - when lids opened, she moves eyes about randomly as if to avoid light) NECK: normal inspection, supple RESPIRATORY: no resp distress, breath sounds normal CVS: reg rate & rhythm, heart sounds normal ABDOMEN: soft, normal bowel sounds BACK: normal inspection SKIN: warm/dry, normal color, other (healing lesions lower legs, with no hair growth and shiny rough skin. Large bandaid left lateral lower leg) EXTREMITIES: non-tender, normal range of motion (moves about on stretcher), no edema NEURO: CN's nml as tested, motor nml, sensation nml Discharge Clincal Impression: Seizure-like activity Referrals: Primary Doctor,No [Primary Care Provider] - 2 Days Condition: Good Disposition: 01 HOME, SELF-CARE Decision to Admit: NO Decision Time: 21:20
[2017-12-29 20:46] LABS: eGFR (African) > 60; eGFR (Non-African) > 60
[2017-12-29 21:48] VITALS: BP 112/69
[2017-12-30 05:36] LABS: BASOPHILS % 0.5 (0.0-1.5); EOSINOPHILS % 1.4 % (0.0-6.8); MEAN CORPUSCULAR VOLUME 91.2 fl (80.0-100.0); MONOCYTES % 4.7 % (0.0-11.0)
[2017-12-30 06:10] LABS: CANNABINOIDS NEGATIVE ng/mL (< 50); METHYLENEDIOXYMETHAMPHETAMINE NEGATIVE ng/mL (<500)
[2017-12-30 06:11] LABS: APPEARANCE,URINE CLEAR (CLEAR); COLOR,URINE YELLOW (YELLOW); OCCULT BLOOD,URINE NEGATIVE (NEGATIVE); PH URINE 7.5 (5.0 - 8.0); UROBILINOGEN URINE 0.2 Eu (0.2-1.0)
== END 2017-12-29 21:45 | disposition home or self-care (01) ==
LOC: ED 19:13
DX: R56.9 Unspecified convulsions (principal)
CPT/HCPCS: 80053; 80377; 81002; 85025; 99283; G0481

== ENCOUNTER 2018-03-15 12:44 | Emergency (ER) | payer OTHER ==
[2018-03-15 13:20] VITALS: BP 157/89
[2018-03-15] MEDS: KETOROLAC TROMETHAMINE 60 MG/2 ML VIAL IM ONE (13:40)
--- NOTE | 2018-03-15 13:55 | ED Physician Documentation ---
Sore Throat/Dental Pain - HISTORIAN Historian: patient - HPI Stated Complaint: Dental pain Chief Complaint: Dental Pain Further Comments: yes (52 year old female patient presents with complaints of dental pain. Patient unsure of when pain started. History of chronic pain and narcotic abuse.) - ROS CONST: no problems CVS/RESP: none GI/: denies: nausea, vomiting MS/SKIN/LYMPH: muscle aches NEURO/PSYCH: none - PAST HX Past History: gum disease Other History: other (COPD, HTN, MS, bipolar) Allergies/Adverse Reactions: Allergies Allergy/AdvReac Type Severity Reaction Status Date / Time morphine Allergy Severe Anaphylaxis Verified 03/15/18 13:21 phenytoin sodium Allergy Intermediate Rash Verified 03/15/18 13:21 [From Dilantin] phenytoin sodium extended Allergy Intermediate Rash Verified 03/15/18 13:21 [From Dilantin] Penicillins Allergy Mild Rash Verified 03/15/18 13:21 gabapentin Allergy Verified 03/15/18 13:21 phenobarbital AdvReac Face Verified 03/15/18 13:21 Swelling pregabalin [From Lyrica] AdvReac Rash Verified 03/15/18 13:21 tramadol AdvReac Anaphylaxis Verified 03/15/18 13:21 ADHESIVES AdvReac Unknown Rash Uncoded 03/15/18 13:21 Home Medications: Ambulatory Orders Medication Instructions Recorded Furosemide [Lasix] 80 mg PO BID 09/15/13 Albuterol Sulfate [Ventolin HFA 1 puff PO PRN PRN 08/30/14 Inhaler] Fluticasone/Salmeterol [Advair 1 puff PO PRN PRN 08/30/14 500-50 Diskus] Quetiapine Fumarate [Seroquel] 200 mg PO PM 08/30/14 Tolterodine Tartrate [Detrol LA] 4 mg PO DAILY 08/30/14 Ropinirole HCl [Requip] 1 mg PO BID 12/05/14 Ferrous Gluconate [Iron] 236 mg PO DAILY #30 tablet 12/16/14 Phenazopyridine HCl [Pyridium] 100 mg PO TID #21 tablet 12/26/16 Chlorhexidine Gluconate [Peridex] 15 ml MM BID #1 mouthwash 03/15/18 Clindamycin HCl [Cleocin] 300 mg PO QID #40 capsule 03/15/18 Corticotropin [H.p. Acthar] 1 ml IM DAILY 03/15/18 Methocarbamol [Robaxin] 1 tab PO DAILY 03/15/18 - SOCIAL HX Smoking History: cigarettes Drug Use: other (hx of poly-abuse) - FAMILY HX Family History: No - VITAL SIGNS Vital Signs: Vital Signs Temp Pulse Resp BP Pulse Ox 97.2 F L 101 H 15 157/89 98 03/15/18 12:55 03/15/18 12:55 03/15/18 12:55 03/15/18 12:55 03/15/18 12:55 - REVIEWED ASSESSMENTS Nursing Assessment Reviewed: Yes Vitals Reviewed: Yes ED Results Lab/Radiology - Orders Orders: ED Orders Category Date Time Status Ketorolac Tromethamine [Toradol] Med 03/15/18 13:38 Discontinued 60 mg IM NOW ONE Dental Pain Physical Exam - EXAM General Appearance: mild distress Mouth/Throat: lips nml, pharynx nml, dental tenderness, gum swelling around teeth, widespread dental decay Respiratory: no resp. distress, breath sounds nml CVS: reg. rate & rhythm Skin: normal color, warm/dry, NR, INT, PAL, DR Neuro/Psych: none Discharge Clincal Impression: Pain due to dental caries Prescriptions: Chlorhexidine Gluconate [Peridex] 15 ml MM BID #1 mouthwash Clindamycin HCl [Cleocin] 300 mg PO QID #40 capsule Referrals: Primary Doctor,No [Primary Care Provider] - 2 Days Condition: Stable Disposition: 01 HOME, SELF-CARE Decision to Admit: NO Decision Time: 13:58
== END 2018-03-15 13:55 | disposition home or self-care (01) ==
LOC: ED 12:44
DX: K02.9 Dental caries, unspecified (principal)
CPT/HCPCS: 96372; 99283; J1885